=== PATIENT | female | born 1985 | race African-American/Black ===

== ENCOUNTER 2017-03-26 19:11 | Emergency (ER) | payer SELFPAY ==
[~2017-03-26 19:11] MED LIST: BACT800T5 PO; CEPH500T PO
[2017-03-26 19:21] VITALS: BP 126/66; RESP 20; TEMP 98.6; O2SAT 100
[2017-03-26] MEDS ORDERED: SUBO2MIS SL (19:30)
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
== END 2017-03-26 20:17 | disposition home or self-care (01) ==
LOC: PHEFT 19:11
DX: G56.02 Carpal tunnel syndrome, left upper limb (principal)
CPT/HCPCS: 99282; L3908; 29125

== ENCOUNTER 2017-05-11 19:13 | Emergency (ER) | payer SELFPAY ==
[~2017-05-11] VITALS: Ht 177.8 cm; Wt 63.5 kg
[~2017-05-11 19:13] MED LIST changes: -BACT800T5 PO; -CEPH500T PO; +SUBO2MIS SL
[2017-05-11 19:19] VITALS: BP 106/72; PULSE 68; RESP 16; TEMP 98.1
[2017-05-11] MEDS ORDERED: TETANUS/DIPHTHERIA TOXOID ADULT 0.5 ML VIAL IM ONE (19:45)
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
== END 2017-05-11 21:28 | disposition home or self-care (01) ==
LOC: PHEFT 19:13
DX: S09.8XXA Other specified injuries of head, initial encounter (principal); S00.83XA Contusion of other part of head, initial encounter; S16.1XXA Strain of muscle, fascia and tendon at neck level, initial encounter; V28.4XXA Motorcycle driver injured in noncollision transport accident in traffic accident, initial encounter; Y92.410 Unspecified street and highway as the place of occurrence of the external cause
CPT/HCPCS: 70450; 70486; 72125; 90471; 90714

== ENCOUNTER 2017-05-23 10:02 | Emergency (ER) | payer OTHER ==
[~2017-05-23] VITALS: Ht 177.8 cm; Wt 63.0 kg
[2017-05-23 10:05] VITALS: BP 107/53; PULSE 74; RESP 18; TEMP 99; O2SAT 99
[2017-05-23 10:50] VITALS: BP 109/57; PULSE 52; RESP 16; O2SAT 100
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
[2017-05-23 11:49] VITALS: BP 109/61; PULSE 54; RESP 16; O2SAT 99
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
[2017-05-23 12:49] VITALS: BP 131/73; PULSE 60; RESP 16; O2SAT 99
== END 2017-05-23 13:12 | disposition home or self-care (01) ==
LOC: PHED 10:02
DX: S70.01XA Contusion of right hip, initial encounter (principal); S00.03XA Contusion of scalp, initial encounter; F19.10 Other psychoactive substance abuse, uncomplicated; R06.02 Shortness of breath; F17.200 Nicotine dependence, unspecified, uncomplicated; V89.0XXA Person injured in unspecified motor-vehicle accident, nontraffic, initial encounter
CPT/HCPCS: 70450; 71010; 72125; 72170; 80307; 84703

== ENCOUNTER 2017-06-09 01:05 | Emergency (ER) | payer OTHER ==
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
[2017-06-09 01:40] VITALS: BP 122/72; PULSE 84; RESP 16; TEMP 98.1; O2SAT 100
[2017-06-09 01:42] LABS: AUTOMATED NEUTROPHIL # 7.8 TH/MM3 (1.8-7.7); BASOPHIL # 0.1 TH/MM3 (0-0.2); BASOPHIL % 1.2 % (0.0-2.0); EOSINOPHIL # 0.3 TH/MM3 (0-0.4); EOSINOPHIL % 2.5 % (0.0-4.0); HEMATOCRIT 32.7 % (35.0-46.0); HEMO FLAGS DIFF FINAL; LYMPH % 22.2 % (9.0-44.0); LYMPHOCYTE # 2.6 TH/MM3 (1.0-4.8); MEAN CELL VOLUME 74.1 FL (80.0-100.0); MEAN CORPUSCULAR HEMOGLOBIN 23.6 PG (27.0-34.0); MEAN CORPUSCULAR HGB CONC 31.9 % (32.0-36.0); MONO % 7.3 % (0.0-8.0); NEUT % 66.8 % (16.0-70.0); PLATELET COUNT 278 TH/MM3 (150-450); RED BLOOD COUNT 4.42 MIL/MM3 (4.00-5.30); RED CELL DISTRIBUTION WIDTH 15.6 % (11.6-17.2); WHITE BLOOD COUNT 11.7 TH/MM3 (4.0-11.0)
[2017-06-09] MEDS ORDERED: SUBO2MIS SL (01:50)
[2017-06-09 02:00] LABS: ALT (GPT) 27 U/L (10-53); ANION GAP 8 MEQ/L (5-15); AST (GOT) 28 U/L (15-37); BICARBONATE 26.5 MEQ/L (21.0-32.0); BLOOD UREA NITROGEN 12 MG/DL (7-18); CHLORIDE 104 MEQ/L (98-107); GLOMERULAR FILTRATION RATE 69 ML/MIN (>89); POTASSIUM 3.7 MEQ/L (3.5-5.1); SODIUM (NA) 138 MEQ/L (136-145)
[2017-06-09 02:02] LABS: ALKALINE PHOSPHATASE 61 U/L (45-117); TOTAL BILIRUBIN ADULT 0.5 MG/DL (0.2-1.0)
[2017-06-09 02:08] LABS: ACETAMINOPHEN LESS THAN 2.0 MCG/ML (10.0-30.0); ALCOHOL LESS THAN 3 MG/DL (0-5)
[2017-06-09 02:58] LABS: BACTERIA, URINE RARE /hpf; BLOOD, URINE NEG (NEG); CALCIUM OXALATE CRYSTALS,URINE RARE /hpf; COMMENT (UR) CULT NOT INDICATED; CULTURE IF INDICATED CULT NOT INDICATED; GLUCOSE,URINE NEG (NEG); KETONE, URINE TRACE mg/dL (NEG); MUCUS URINE FEW /lpf (OCC); NITRITE,URINE NEG (NEG); PH, URINE 5.5 (5.0-8.5); SQUAMOUS EPITHELIAL CELL URINE 4 /hpf (0-5); URINE COLOR YELLOW (YELLW/STRAW)
[2017-06-09 08:00] VITALS: BP 110/55; PULSE 61; RESP 19; O2SAT 100
[2017-06-09 13:06] VITALS: BP 110/60
== END 2017-06-09 13:10 ==
LOC: NEPD 01:05
DX: F19.10 Other psychoactive substance abuse, uncomplicated (principal); F17.200 Nicotine dependence, unspecified, uncomplicated; Z79.899 Other long term (current) drug therapy
CPT/HCPCS: 80053; 80307; 81001; 84703; 85025; 99285

== ENCOUNTER 2017-09-23 22:06 | Inpatient (IN) | payer SELFPAY ==
[~2017-09-23] VITALS: Ht 177.8 cm; Wt 72.9 kg
[2017-09-23 22:19] VITALS: BP 126/78
[2017-09-23] MEDS ORDERED: SODIUM CHLOR 0.9% 1000 ML INJ 1,000 ML IV SCH (22:25)
[2017-09-23 22:30] VITALS: BP 126/78; PULSE 85; RESP 18; TEMP 97.5; O2SAT 100
[2017-09-23] MEDS ORDERED: ceFAZolin 2 GM PREMIX 50 ML IV ONE (22:30)
[2017-09-23] MEDS ORDERED: ONDANSETRON HCL 4 MG/2 ML VIAL IV PUSH ONE (22:30)
[2017-09-23] MEDS ORDERED: DIPHTH/TETANUS/ACEL PERTUSSIS (BOOSTER) 0.5 ML VIAL/PFS IM ONE (22:30)
[2017-09-23] MEDS ORDERED: MORPHINE SULFATE 4 MG/ML INJ IV PUSH ONE (22:30)
[2017-09-23] MEDS ORDERED: SODIUM CHLORIDE 0.9% FLUSH 10 ML FLUSH IVF PRN (22:30)
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
[2017-09-23 23:00] VITALS: BP 124/75; PULSE 85; RESP 18; O2SAT 100
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
[2017-09-23] MEDS ORDERED: MORPHINE SULFATE 2 MG/ML INJ IV PUSH ONE (23:15)
[2017-09-23 23:18] LABS: BASOPHIL # 0.1 TH/MM3 (0-0.2); BASOPHIL % 0.9 % (0.0-2.0); EOSINOPHIL # 0.3 TH/MM3 (0-0.4); HEMOGLOBIN 11.9 GM/DL (11.6-15.3); LYMPH % 21.2 % (9.0-44.0); LYMPHOCYTE # 2.2 TH/MM3 (1.0-4.8); MEAN CELL VOLUME 76.6 FL (80.0-100.0); MEAN CORPUSCULAR HEMOGLOBIN 25.3 PG (27.0-34.0); MEAN PLATELET VOLUME 9.3 FL (7.0-11.0); MONO % 8.7 % (0.0-8.0); MONOCYTE # 0.9 TH/MM3 (0-0.9); NEUT % 66.2 % (16.0-70.0); PLATELET COUNT 276 TH/MM3 (150-450); RED BLOOD COUNT 4.69 MIL/MM3 (4.00-5.30); RED CELL DISTRIBUTION WIDTH 15.1 % (11.6-17.2); WHITE BLOOD COUNT 10.6 TH/MM3 (4.0-11.0)
[2017-09-23 23:30] LABS: INTERNATIONAL NORMALIZED RATIO 1.1 RATIO; PROTHROMBIN TIME - PATIENT 11.1 SEC (9.8-11.6)
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
[2017-09-23] MEDS ORDERED: IOHEXOL 350 MG/ML 10 ML VIAL (for RAD DIAG) IVCONTRAST ONE (23:59)
[2017-09-24] VITALS (11 sets, daily range): BP systolic 104–140; BP diastolic 50–68; PULSE 71–100; RESP 16–23; TEMP 97–99.3; O2SAT 96–100
[2017-09-24] MEDS ORDERED: MISCELLANEOUS NURSING INFORMATION XX SCH
[2017-09-24] MEDS ORDERED: CHLORHEXIDINE GLUCONATE 2 % 1 PACK (2 CLOTHS) TOP PRN
[2017-09-24] MEDS ORDERED: ENALAPRILAT 1.25 MG/ML VIAL IV PUSH PRN
[2017-09-24] MEDS ORDERED: ONDANSETRON HCL 4 MG/2 ML VIAL IV PUSH PRN
[2017-09-24] MEDS ORDERED: SODIUM CHLORIDE 0.9% FLUSH 10 ML FLUSH IV FLUSH PRN
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
[2017-09-24] MEDS ORDERED: LIDOCAINE HCL 1% PF 10 ML VIAL INFIL ONE (01:15)
[2017-09-24] MEDS: MORPHINE SULFATE 4 MG/ML INJ IV PUSH PRN ×3 (01:26→08:00)
[2017-09-24] MEDS: PANTOPRAZOLE SODIUM 40 MG VIAL IVP SCH (01:27)
[2017-09-24] MEDS ORDERED: LIDOCAINE HCL 1% 20 ML VIAL INFIL ONE (01:30)
[2017-09-24] MEDS: SODIUM CHLOR 0.9% 1000 ML INJ 1,000 ML IV SCH ×4 (03:06→22:26)
[2017-09-24] MEDS: CHLORHEXIDINE GLUCONATE 2 % 1 PACK (2 CLOTHS) TOP SCH (04:00)
[2017-09-24 07:06] LABS: AUTOMATED NEUTROPHIL # 11.2 TH/MM3 (1.8-7.7); BASOPHIL # 0.1 TH/MM3 (0-0.2); BASOPHIL % 0.6 % (0.0-2.0); EOSINOPHIL # 0.3 TH/MM3 (0-0.4); EOSINOPHIL % 2.1 % (0.0-4.0); HEMATOCRIT 33.8 % (35.0-46.0); HEMOGLOBIN 10.9 GM/DL (11.6-15.3); LYMPH % 10.9 % (9.0-44.0); LYMPHOCYTE # 1.5 TH/MM3 (1.0-4.8); MEAN CORPUSCULAR HEMOGLOBIN 25.1 PG (27.0-34.0); MEAN CORPUSCULAR HGB CONC 32.1 % (32.0-36.0); MEAN PLATELET VOLUME 9.4 FL (7.0-11.0); MONO % 6.8 % (0.0-8.0); NEUT % 79.6 % (16.0-70.0); PLATELET COUNT 242 TH/MM3 (150-450); RED BLOOD COUNT 4.34 MIL/MM3 (4.00-5.30); RED CELL DISTRIBUTION WIDTH 14.6 % (11.6-17.2); WHITE BLOOD COUNT 14.1 TH/MM3 (4.0-11.0)
[2017-09-24 07:23] LABS: AST (GOT) 55 U/L (15-37); CHLORIDE 108 MEQ/L (98-107); SODIUM (NA) 138 MEQ/L (136-145)
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
[2017-09-24 07:32] LABS: ALBUMIN 3.8 GM/DL (3.4-5.0); ALKALINE PHOSPHATASE 62 U/L (45-117); ALT (GPT) 37 U/L (10-53); BICARBONATE 20.9 MEQ/L (21.0-32.0); BLOOD UREA NITROGEN 11 MG/DL (7-18); CALCIUM 8.6 MG/DL (8.5-10.1); CREATININE 0.85 MG/DL (0.50-1.00); GLOMERULAR FILTRATION RATE 94 ML/MIN (>89); GLUCOSE,RANDOM 60 MG/DL (74-106); TOTAL BILIRUBIN ADULT 0.9 MG/DL (0.2-1.0)
[2017-09-24] MEDS: ACETAMINOPHEN 1000 MG/100 ML 100 ML IV SCH ×3 (11:02→22:51)
[2017-09-24] MEDS ORDERED: MORPHINE SULFATE 4 MG/ML INJ IV PUSH PRN ×2 (11:45)
[2017-09-24] MEDS ORDERED: LACTATED RINGER'S 1000 ML INJ 1,000 ML IV ONE (12:00)
[2017-09-24] MEDS ORDERED: NEOSTIGMINE 5 MG/5 ML SYRINGE IV PUSH ONE (12:00)
[2017-09-24] MEDS ORDERED: ONDANSETRON HCL 4 MG/2 ML VIAL IV ONE (12:00)
[2017-09-24] MEDS ORDERED: GLYCOPYRROLATE 1 MG/5 ML SYRINGE IV PUSH ONE (12:00)
[2017-09-24] MEDS ORDERED: ceFAZolin INJ 1,000 MG VIAL IV ONE (12:00)
[2017-09-24] MEDS ORDERED: LIDOCAINE HCL 1% PF 5 ML SYRINGE OTHER ONE (12:00)
[2017-09-24] MEDS ORDERED: SUCCINYLCHOLINE CHLORIDE 200 MG/10 ML VIAL IV ONE (12:00)
[2017-09-24] MEDS ORDERED: ROCURONIUM INJ 50 MG/5 ML SYRINGE IV PUSH ONE (12:00)
[2017-09-24] MEDS ORDERED: PROPOFOL 200 MG/20 ML AMP IV ONE (12:00)
[2017-09-24] MEDS ORDERED: DEXAMETHASONE SOD PHOS 4 MG/ML VIAL IV ONE (12:00)
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
[2017-09-24] MEDS ORDERED: methylPREDNISolone SOD SUCC 125 MG/2 ML VIAL ONE (17:07)
[2017-09-24] MEDS ORDERED: THROMBIN (TOPICAL) 5,000 UNIT VIAL ONE (17:07)
[2017-09-24] MEDS ORDERED: LIDOCAINE 1%/EPINEPHrine 1:100,000 SOLN 30 ML VIAL ONE (17:07)
[2017-09-24] MEDS ORDERED: BACITRACIN TOP OINT 15 GM TUBE ONE (17:07)
[2017-09-24] MEDS ORDERED: CHLORHEXIDINE GLUCONATE 0.12% 15 ML CUP ONE (17:11)
[2017-09-24] MEDS ORDERED: BUPIVACAINE/EPINEPHRINE 0.25% 50 ML VIAL ONE (17:49)
[2017-09-24] MEDS ORDERED: ARTIFICIAL TEARS OPTH OINT 3.5 APPLIC/3.5 GM TUBO ONE (18:15)
[2017-09-24] MEDS ORDERED: MIDAZOLAM HCL 2 MG/2 ML VIAL ONE (19:19)
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
[2017-09-24] MEDS ORDERED: *MEPERIDINE 25 MG INJ VIAL PERIprocedural Use ONLY ONE (21:17)
[2017-09-24] MEDS ORDERED: ACETAMINOPHEN 325MG/HYDROcodone 7.5MG/15ML UDC PO PRN ×2 (22:00)
[2017-09-24] MEDS ORDERED: DO NOT ADM ANY ANTICOAGULANT DRUGS PRN (22:15)
[2017-09-24] MEDS ORDERED: PROMETHAZINE INJ 25 MG/ML VIAL IV-CENTRAL PRN (22:15)
[2017-09-25 00:16] VITALS: BP 130/70; PULSE 85; RESP 18; TEMP 99.3; O2SAT 96
[2017-09-25] MEDS: PANTOPRAZOLE SODIUM 40 MG VIAL IVP SCH (00:27)
[2017-09-25] MEDS: MORPHINE SULFATE 2 MG/ML INJ IV PUSH PRN ×2 (00:31→04:49)
[2017-09-25] MEDS: ceFAZolin 1,000 MG/NS 100 ML IV SCH ×6 (01:30→16:09)
[2017-09-25] MEDS: CHLORHEXIDINE GLUCONATE 2 % 1 PACK (2 CLOTHS) TOP SCH (03:10)
[2017-09-25 04:00] VITALS: BP 125/67; PULSE 65; RESP 18; TEMP 98.2; O2SAT 97
[2017-09-25] MEDS: ACETAMINOPHEN 1000 MG/100 ML 100 ML IV SCH (04:48)
[2017-09-25 06:37] LABS: BICARBONATE 16.5 MEQ/L (21.0-32.0); CALCIUM 8.3 MG/DL (8.5-10.1); CREATININE 0.78 MG/DL (0.50-1.00)
[2017-09-25 08:00] VITALS: BP 130/74; PULSE 67; RESP 20; TEMP 98.7; O2SAT 96
[2017-09-25] MEDS: SODIUM CHLOR 0.9% 1000 ML INJ 1,000 ML IV SCH (08:40)
[2017-09-25] MEDS ORDERED: SENNOSIDES SYRUP 8.8 MG/5 ML CUP PO SCH (09:00)
[2017-09-25 11:39] LABS: AUTOMATED NEUTROPHIL # 11.8 TH/MM3 (1.8-7.7); BASOPHIL % 0.2 % (0.0-2.0); EOSINOPHIL % 0.3 % (0.0-4.0); HEMATOCRIT 30.7 % (35.0-46.0); HEMOGLOBIN 9.8 GM/DL (11.6-15.3); LYMPH % 10.8 % (9.0-44.0); LYMPHOCYTE # 1.6 TH/MM3 (1.0-4.8); MEAN CELL VOLUME 78.2 FL (80.0-100.0); MEAN PLATELET VOLUME 9.3 FL (7.0-11.0); MONO % 7.3 % (0.0-8.0); MONOCYTE # 1.1 TH/MM3 (0-0.9); NEUT % 81.4 % (16.0-70.0); PLATELET COUNT 250 TH/MM3 (150-450); RED BLOOD COUNT 3.93 MIL/MM3 (4.00-5.30); RED CELL DISTRIBUTION WIDTH 14.8 % (11.6-17.2); WHITE BLOOD COUNT 14.5 TH/MM3 (4.0-11.0)
[2017-09-25 12:00] VITALS: BP 150/71; PULSE 66; RESP 19; TEMP 98.1; O2SAT 96
[2017-09-25] MEDS ORDERED: ACETAMINOPHEN/HYDROcodone 325 MG/7.5 MG TAB PO PRN ×2 (12:00)
[2017-09-25] MEDS ORDERED: ACETAMINOPHEN 325MG/HYDROcodone 7.5MG/15ML UDC PO PRN ×2 (12:15)
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
[2017-09-25] MEDS ORDERED: CHLORHEXIDINE GLUCONATE 0.12% 15 ML CUP SWISH-SPIT SCH (12:45)
[2017-09-25] MEDS ORDERED: HYDR1SOL6 PO (13:59)
[2017-09-25] MEDS ORDERED: Chlorhexidine 0.12% Liq SWISH-SPIT (14:07)
[2017-09-25] MEDS ORDERED: CEPH-460 PO (14:13)
[2017-09-25 16:00] VITALS: BP 136/77; PULSE 88; RESP 19; TEMP 97.5; O2SAT 96
--- NOTE | 2017-09-25 20:03 | HHI.PR ---
Subjective Remarks from ~12pm pt doing well, pain controlled Objective Vital Signs Date Time Temp Pulse Resp B/P (MAP) Pulse Ox O2 Delivery O2 Flow Rate FiO2 09/25/17 16:00 97.5 88 19 136/77 (96) 96 09/25/17 12:00 98.1 66 19 150/71 (97) 96 09/25/17 08:00 98.7 67 20 130/74 (92) 96 09/25/17 05:06 18 09/25/17 05:06 18 09/25/17 04:00 98.2 65 18 125/67 (86) 97 09/25/17 00:16 99.3 85 18 130/70 (90) 96 09/24/17 22:00 Nasal Cannula 2.00 09/24/17 21:55 99.3 85 18 140/68 (92) 100 09/24/17 21:46 99.5 91 14 154/82 (106) 100 Nasal Cannula 2 09/24/17 21:45 92 14 152/84 (106) 100 Nasal Cannula 2 09/24/17 21:30 93 14 172/75 (107) 100 Nasal Cannula 2 09/24/17 21:15 99.0 101 14 142/80 (100) 100 Nasal Cannula 2 I/O 09/24/17 09/24/17 09/24/17 09/25/17 09/25/17 09/25/17 07:00 15:00 23:00 07:00 15:00 23:00 Intake Total 1050 ml 1900 ml 200 ml 100 ml Output Total 0 ml 320 ml Balance 1050 ml 1580 ml 200 ml 100 ml Intake Oral 0 ml 100 ml IV Total 1050 ml 200 ml 200 ml Other 1700 ml Output Urine Total 0 ml 280 ml Estimated Blood Loss 40 ml # Voids 3 # Bowel Movements 0 Result Diagram: 09/25/17 1030 09/25/17 0440 Objective Remarks Elastics in place Appropriate edema Assessment and Plan Problem List: (1) Fracture of mandible involving dental socket ICD Codes: S02.670A - Fracture of alveolus of mandible, unspecified side, initial encounter for closed fracture Status: Acute Assessment and Plan 32-year-old female s/p mandible ORIF/MMF Doing well RTC 10-14 days pt given postop instructions again, verbally by me, as well as my card She expresses understanding and repeated them all back to me Problem Qualifiers (1) Fracture of mandible involving dental socket: Qualified Codes: S02.670B - Fracture of alveolus of mandible, unspecified side , initial encounter for open fracture Raffi Cain MD Sep 25, 2017 20:03
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
== END 2017-09-25 17:56 | disposition home or self-care (01) | DRG 131 ==
LOC: NEPC 22:06 → NEDA 23:56 → N03B 09-24 03:22 → N07A 09-24 14:57
PROVIDERS: ADMIT Surgery; ATTEND Surgery
PROC: 0HQ1XZZ Repair Face Skin, External Approach (ICD-10-PCS; 2017-09-23)
PROC: 0NSV04Z Reposition Left Mandible with Internal Fixation Device, Open Approach (ICD-10-PCS; principal; 2017-09-24 17:34)
DX: S02.612A Fracture of condylar process of left mandible, initial encounter for closed fracture (principal); S52.614A Nondisplaced fracture of right ulna styloid process, initial encounter for closed fracture; S52.571A Other intraarticular fracture of lower end of right radius, initial encounter for closed fracture; S06.0X0A Concussion without loss of consciousness, initial encounter; S02.672A Fracture of alveolus of left mandible, initial encounter for closed fracture; S01.81XA Laceration without foreign body of other part of head, initial encounter; F17.210 Nicotine dependence, cigarettes, uncomplicated; V28.4XXA Motorcycle driver injured in noncollision transport accident in traffic accident, initial encounter; Y92.410 Unspecified street and highway as the place of occurrence of the external cause
CPT/HCPCS: 12013; 29125; 70450; 70486; 71045; 71260; 72125; 72170; 73110; 74177; 80048; 80053; 80307; 82948; 84703; 85025; 85610; 85730; 86850; 86900; 86901; 87641; 90471; 90715; 94150; 96365; 96375; 96376; C1713; C9113; J0131; J0330; J0690; J1100; J2175; J2250; J2270; J2405; J2710; J2930; J3010; J7030; J7120; Q9967

== ENCOUNTER → 2017-11-14 | Day surgery (SDC) | payer SELFPAY ==
[~2017-11-14] VITALS: Ht 177.8 cm; Wt 63.0 kg
[~2017-11-14] MED LIST changes: +CEPH-460 PO; +CHLORHEXIDINE GLUCONATE 2 % 1 PACK (2 CLOTHS) TOPICAL PRN; +Chlorhexidine 0.12% Liq SWISH-SPIT; +DEXAMETHASONE SOD PHOS 4 MG/ML VIAL ONE; +HYDR1SOL6 PO; +LACTATED RINGER'S 1000 ML IV PRN; +METOPROLOL TARTRATE 25 MG TAB PO PRN; +MIDAZOLAM HCL 2 MG/2 ML VIAL ONE; +POVIDONE IODINE 5% (ANTISEPSIS KIT) 4 APPLICATIONS EACH NARE PRN; +SODIUM CHLORID 0.9% 500 ML IV PRN; -SUBO2MIS SL; +ceFAZolin 1,000 MG/NS 100 ML IV SCH
[2017-11-14 11:35] VITALS: PULSE 54
[2017-11-14 12:40] VITALS: BP 114/64; PULSE 55; RESP 16; TEMP 97.6; O2SAT 100
--- NOTE | 2017-11-16 10:49 | PD.OP ---
Operative Report Date of Surgery: Nov 14, 2017 Preoperative Diagnosis: (1) Mandible fracture Postoperative Diagnosis: (1) Mandible fracture Procedure: Removal of arch bars (61690-16) Surgeon: Raffi Darden Automatic Vulcanizing Operator(s): . Operation and Findings: 32-year-old female who presented to clinic in the arch bars status post MMF/ ORIF of left subcondylar and left parasymphyseal mandibular fractures. Risks benefits alternative treatments were discussed. All questions were answered and the patient expressed understanding. Patient elected to assume the risks of arch bar removal. Informed consent was obtained. The patient was given antibiotics on-call to the operating room. The patient was taken to the operating room and all pressure points were padded. A surgical timeout was performed. After the smooth induction of general anesthesia, the surgical site was prepped and draped in the usual sterile fashion. The arch bars were removed. The patient was awoken from anesthesia and arrived stable doing well to the PACU. All needle sponge and estimate counts were correct 2. Raffi Darden MD Nov 16, 2017 10:49
== END | disposition home or self-care (01) ==
LOC: PHSDC 09:45
PROVIDERS: ATTEND Student in an Organized Health Care Education/Training Program
DX: S02.6 Fracture of mandible (principal)
CPT/HCPCS: 00190; 20670; J0690; J1100; J2250; J3010; J7120